=== PATIENT | male | born 1960 | race Caucasian/White ===

== ENCOUNTER 2016-07-16 16:51 | Emergency (ER) | payer MEDICAID ==
[~2016-07-16] VITALS: Ht 165.1 cm; Wt 88.6 kg
[2016-07-16 18:45] LABS: APPEARANCE,URINE CLOUDY (CLEAR); GLUCOSE, URINE (UA) NEGATIVE (NEGATIVE); KETONES,URINE NEGATIVE (NEGATIVE); LEUKOCYTE ESTERASE ,URINE MODERATE (NEGATIVE); OCCULT BLOOD,URINE SMALL (NEGATIVE); PH,URINE 6.5 (5.0-8.0); PROTEIN,URINE SEE CONFIRM (NEGATIVE)
[2016-07-16] MEDS ORDERED: KETOROLAC TROMETHAMINE 30 MG/ML VIAL IVP ONE (18:45)
[2016-07-16 19:01] LABS: ADD UA MICROSCOPIC YES
[2016-07-16 19:10] VITALS: BP 178/118
[2016-07-16 19:14] LABS: SULFOSALICYLIC ACID,URINE 2+ (Negative)
[2016-07-16] MEDS ORDERED: CloNIDine HCL 0.2 MG TABLET PO ONE (19:15)
[2016-07-16 19:19] LABS: WBC,URINE 51-100 /HPF (0-5)
[2016-07-16 19:20] LABS: FINE GRANULAR CASTS,URINE 0-2 /LPF (None Seen); SQUAMOUS EPITHELIAL CELL,UR Rare /LPF (None Seen)
== END 2016-07-16 19:47 | disposition home or self-care (01) ==
LOC: EMS 16:52
DX: N45.1 Epididymitis (principal); F15.90 Other stimulant use, unspecified, uncomplicated; F17.210 Nicotine dependence, cigarettes, uncomplicated
CPT/HCPCS: 76870; 81001; 81002; 87086; 96374; 99285; J1885

== ENCOUNTER 2016-07-18 13:33 | Emergency (ER) | payer MEDICAID ==
[~2016-07-18] VITALS: Ht 175.3 cm; Wt 86.4 kg
[2016-07-18] MEDS ORDERED: HYDR-309 PO (13:48)
[2016-07-18] MEDS: LEVOFLOXACIN 500 MG TABLET PO ONE (14:12)
[2016-07-18] MEDS: AZITHROMYCIN 250 MG TABLET PO ONE (14:12)
[2016-07-18] MEDS: HYDROCODONE/ACETAMINOPHEN 5-325 MG TABLET PO ONE (14:12)
[2016-07-18] MEDS: CefTRIAXone SODIUM 1 GM/VIAL IM ONE (14:13)
[2016-07-18] MEDS: LIDOCAINE HCL/PF 1% 2 ML VIAL IM ONE (14:13)
[2016-07-18 15:10] VITALS: BP 152/110
== END 2016-07-18 15:52 | disposition home or self-care (01) ==
LOC: EMS 13:35
DX: N45.1 Epididymitis (principal); I10 Essential (primary) hypertension; F17.210 Nicotine dependence, cigarettes, uncomplicated; F15.10 Other stimulant abuse, uncomplicated
CPT/HCPCS: 96372; 99284; J0696; J3490

== ENCOUNTER 2017-02-23 16:05 | Emergency (ER) | payer MEDICAID ==
[~2017-02-23] VITALS: Ht 165.1 cm; Wt 86.0 kg
[~2017-02-23 16:05] MED LIST: HYDR-309 PO
[2017-02-23] MEDS ORDERED: SULFAMETHOX/TRIMETH DS 800-160 MG/TABLET PO ONE (17:00)
[2017-02-23] MEDS ORDERED: IBUPROFEN 800 MG TABLET PO ONE (17:00)
[2017-02-23] MEDS ORDERED: CEPHALEXIN MONOHYDRATE 500 MG CAPSULE PO ONE (17:00)
[2017-02-23 17:31] VITALS: BP 146/113
== END 2017-02-23 17:40 | disposition home or self-care (01) ==
LOC: EMS 16:06
DX: T63.301A Toxic effect of unspecified spider venom, accidental (unintentional), initial encounter (principal); L03.113 Cellulitis of right upper limb; F17.210 Nicotine dependence, cigarettes, uncomplicated; F19.90 Other psychoactive substance use, unspecified, uncomplicated
CPT/HCPCS: 99284; 99406

== ENCOUNTER 2017-07-20 18:02 | Emergency (ER) | payer MEDICAID ==
[~2017-07-20] VITALS: Ht 167.6 cm; Wt 84.5 kg
[2017-07-20] MEDS ORDERED: CEPHALEXIN MONOHYDRATE 500 MG CAPSULE PO ONE (20:00)
[2017-07-20] MEDS ORDERED: SULFAMETHOX/TRIMETH DS 800-160 MG/TABLET PO ONE (20:00)
[2017-07-20 20:03] VITALS: BP 145/74
== END 2017-07-20 20:07 | disposition home or self-care (01) ==
LOC: EMS 18:04
DX: L03.115 Cellulitis of right lower limb (principal); F15.10 Other stimulant abuse, uncomplicated; F17.210 Nicotine dependence, cigarettes, uncomplicated
CPT/HCPCS: 99283; 99406

== ENCOUNTER 2019-01-30 17:32 | Emergency (ER) | payer MEDICAID ==
[~2019-01-30] VITALS: Ht 165.1 cm; Wt 100.0 kg
[2019-01-30] MEDS ORDERED: HTN PO (17:34)
[2019-01-30 19:35] VITALS: BP 158/91
== END 2019-01-30 19:50 | disposition home or self-care (01) ==
LOC: EMS 17:33
DX: J02.9 Acute pharyngitis, unspecified (principal); F17.210 Nicotine dependence, cigarettes, uncomplicated; I10 Essential (primary) hypertension
CPT/HCPCS: 87430

== ENCOUNTER 2019-05-11 23:49 | Emergency (ER) | payer MEDICAID, OTHER ==
[~2019-05-11] VITALS: Ht 165.1 cm; Wt 97.7 kg
[~2019-05-11 23:49] MED LIST changes: +HTN PO; -HYDR-309 PO
[2019-05-12] MEDS ORDERED: ACETAMINOPHEN 325 MG TABLET PO ONE (02:15)
[2019-05-12] MEDS ORDERED: IBUPROFEN 400 MG TABLET PO ONE (02:15)
[2019-05-12] MEDS ORDERED: CEPHALEXIN MONOHYDRATE 500 MG CAPSULE PO ONE (03:30)
[2019-05-12 03:42] VITALS: BP 165/94
== END 2019-05-12 03:52 | disposition home or self-care (01) ==
LOC: EMS 23:50
DX: L03.115 Cellulitis of right lower limb (principal); I10 Essential (primary) hypertension; F19.10 Other psychoactive substance abuse, uncomplicated; F17.210 Nicotine dependence, cigarettes, uncomplicated; F15.90 Other stimulant use, unspecified, uncomplicated
CPT/HCPCS: 93971